=== PATIENT | female | born 1990 | race African-American/Black ===

== ENCOUNTER 2019-02-09 19:53 | Emergency (ER) | payer SELFPAY ==
[~2019-02-09] VITALS: Ht 157.5 cm; Wt 81.6 kg
[~2019-02-09 19:53] MED LIST: ACET-1079 PO; PREN-129 OR
[2019-02-09 20:23] VITALS: BP 110/64
[2019-02-09] MEDS ORDERED: TETANUS-DIPTH-ACEL PERTUSSIS 0.5ML SYRG IM ONE (20:45)
[2019-02-09] MEDS ORDERED: SILVER SULFADIAZINE 1 % TOPICAL CREAM 50GM TOP ONE (20:45)
== END 2019-02-09 21:26 | disposition home or self-care (01) ==
LOC: ER 19:56
DX: T22.011A Burn of unspecified degree of right forearm, initial encounter (principal); F12.10 Cannabis abuse, uncomplicated; Z23 Encounter for immunization; X15.2XXA Contact with hotplate, initial encounter; Y93.G3 Activity, cooking and baking; Y92.090 Kitchen in other non-institutional residence as the place of occurrence of the external cause; Y99.8 Other external cause status
CPT/HCPCS: 16000; 90471; 90715